=== PATIENT | male | born 1950 | race Caucasian/White ===

== ENCOUNTER → 2018-08-19 | Outpatient (CLI) | payer OTHER | END | disposition home or self-care (01) | LOC: RAH 10:13 | PROVIDERS: ATTEND Internal Medicine | DX: J44.9 Chronic obstructive pulmonary disease, unspecified (principal); I10 Essential (primary) hypertension; M47.815 Spondylosis without myelopathy or radiculopathy, thoracolumbar region; J84.10 Pulmonary fibrosis, unspecified; Q45.9 Congenital malformation of digestive system, unspecified; Z87.891 Personal history of nicotine dependence | CPT/HCPCS: 71046 ==

== ENCOUNTER → 2018-09-06 | Outpatient (CLI) | payer OTHER | END | disposition home or self-care (01) | LOC: RAH 08:40 | PROVIDERS: ATTEND Podiatrist | DX: M19.072 Primary osteoarthritis, left ankle and foot (principal); M25.775 Osteophyte, left foot; B35.1 Tinea unguium | CPT/HCPCS: 73630 ==

== ENCOUNTER → 2018-10-08 | Outpatient (CLI) | payer OTHER | END | disposition home or self-care (01) | LOC: RAH 16:12 | PROVIDERS: ATTEND Internal Medicine | DX: M48.56XA Collapsed vertebra, not elsewhere classified, lumbar region, initial encounter for fracture (principal); M47.816 Spondylosis without myelopathy or radiculopathy, lumbar region; M47.898 Other spondylosis, sacral and sacrococcygeal region; I87.8 Other specified disorders of veins | CPT/HCPCS: 72100; 72170; 72200 ==

== ENCOUNTER → 2023-01-23 | Outpatient (CLI) | payer OTHER | END | disposition home or self-care (01) | LOC: RAH 09:19 | PROVIDERS: ATTEND Internal Medicine Gastroenterology | DX: K44.9 Diaphragmatic hernia without obstruction or gangrene (principal) | CPT/HCPCS: 74240 ==

== ENCOUNTER → 2023-03-17 | Outpatient (CLI) | payer OTHER ==
[~2023-03-17] MED LIST: IOHEXOL 350 MG/ML 100ML INFUS..BTL IV ONE; METOPROLOL TARTRATE 1 MG/ML 5ML VIAL IV ONE
== END | disposition home or self-care (01) ==
LOC: RAH 08:06
PROVIDERS: ATTEND Internal Medicine Cardiovascular Disease
DX: R94.39 Abnormal result of other cardiovascular function study (principal); R06.00 Dyspnea, unspecified; R94.31 Abnormal electrocardiogram [ECG] [EKG]; I10 Essential (primary) hypertension; K44.9 Diaphragmatic hernia without obstruction or gangrene
CPT/HCPCS: 75574; J3490; Q9967 ×2

== ENCOUNTER 2023-04-16 08:16 | Observation (INO) | payer OTHER ==
[2023-04-13 16:00] LABS: BASOPHILS # (AUTO) 0.06 K/uL (0.00-0.20); BASOPHILS % (AUTO) 1.3 % (0.0-5.0); EOSINOPHILS # (AUTO) 0.09 K/uL (0.00-0.70); EOSINOPHILS % (AUTO) 1.9 % (0.0-8.0); HEMATOCRIT 36.5 % (42-54); LYMPHOCYTES # (AUTO) 1.9 K/uL (1.0-4.8); LYMPHOCYTES % (AUTO) 39.5 % (21.0-51.0); MEAN CORPUSCULAR HEMOGLOBIN 19.3 pg (27.0-33.0); MEAN CORPUSCULAR HGB CONC 27.9 g/dL (32.0-36.0); MONOCYTES # (AUTO) 0.6 K/uL (0.1-1.0); MONOCYTES % (AUTO) 12.7 % (3.0-13.0); NEUTROPHILS # (AUTO) 2.1 K/uL (1.8-7.7); NEUTROPHILS % (AUTO) 44.6 % (40.0-77.0); PLATELET COUNT (AUTO) 280 K/uL (130-400); RED BLOOD CELL COUNT(AUTO) 5.29 MIL/uL (4.50-6.20); RED CELL DISTRIBUTION WIDTH 21.4 % (11.0-15.5); WHITE BLOOD COUNT (AUTO) 4.7 K/uL (4.8-10.8)
[2023-04-13 16:06] LABS: CREATININE 1.1 mg/dL (0.5-1.5)
[2023-04-13 16:20] VITALS: BP 146/87; PULSE 71; RESP 18
[2023-04-16] VITALS (32 sets, daily range): BP systolic 113–170; BP diastolic 68–101; PULSE 66–102; RESP 12–19
[~2023-04-16] VITALS: Ht 185.4 cm; Wt 93.7 kg
[~2023-04-16 08:16] MED LIST changes: +ASCO500C18 PO; +CHOL100020 PO; +DOXA1TAB66 PO; +FAMO-136 PO; +FERR-82 PO; -IOHEXOL 350 MG/ML 100ML INFUS..BTL IV ONE; +METO25TA6 PO; -METOPROLOL TARTRATE 1 MG/ML 5ML VIAL IV ONE; +SUCR1TAB28 PO
[2023-04-16] MEDS ORDERED: LACTATED RINGERS 1000ML 1,000 ML IV ONE (08:50)
[2023-04-16] MEDS ORDERED: CEFAZOLIN SODIUM 2 GM VIAL ONE (08:50)
[2023-04-16] MEDS ORDERED: RENAL VITAMIN PO (09:13)
[2023-04-16] MEDS ORDERED: ACETAMINOPHEN 1,000 MG/100 ML VIAL IV ONE (13:01)
[2023-04-16] MEDS ORDERED: ROCURONIUM BROMIDE 10MG/1ML 5ML VL ONE ×2 (13:04→13:45)
[2023-04-16] MEDS ORDERED: PROPOFOL 10 MG/ML 20ML VIAL IV ONE (13:04)
[2023-04-16] MEDS ORDERED: LIDOCAINE PF 100MG/5ML (2%) SYRINGE 5ML ONE (13:04)
[2023-04-16] MEDS ORDERED: FENTANYL CITRATE PF 50 MCG/1 ML 5ML AMP IV ONE (13:04)
[2023-04-16] MEDS ORDERED: CEFAZOLIN SODIUM 2 GM VIAL IVPB ONE (13:25)
[2023-04-16] MEDS ORDERED: ONDANSETRON 4MG INJ ONE (13:27)
[2023-04-16] MEDS ORDERED: DEXAMETHASONE SOD PHOSPHATE 10MG/ML 1ML VIAL ONE (13:27)
[2023-04-16] MEDS ORDERED: BUPIVACAINE/PF 0.5% 30ML VIAL INJ ONE (13:30)
[2023-04-16] MEDS ORDERED: BUPIVACAINE/PF 0.5% 30ML VIAL ONE (13:30)
[2023-04-16] MEDS ORDERED: GLYCOPYRROLATE 0.2 MG/ML 5 ML VIAL ONE (13:37)
[2023-04-16] MEDS ORDERED: NEOSTIGMINE METHYLSULFATE 1MG/ML IV ONE (13:37)
[2023-04-16] MEDS ORDERED: ONDANSETRON 4MG INJ IVP PRN (16:30)
[2023-04-16] MEDS ORDERED: PROCHLORPERAZINE 10MG/2ML INJ IV PRN (16:30)
[2023-04-16] MEDS: LACTATED RINGERS 1000ML 1,000 ML IV SCH ×2 (16:30→19:51)
[2023-04-16] MEDS ORDERED: ENOXAPARIN SODIUM 30 MG/0.3 ML SQ SCH (16:30)
[2023-04-16] MEDS ORDERED: HYDROCODONE/ACETAMINOPHEN 7.5/325 MG 15 ML UDCUP PO PRN (16:30)
[2023-04-16] MEDS ORDERED: HYDROMORPHONE 1 MG INJ IVP PRN (16:30)
[2023-04-16] MEDS ORDERED: IPRATROPIUM/ALBUTEROL SULFATE 3 ML SOLUTION IH ONE ×2 (17:53→18:00)
[2023-04-16] MEDS: ENOXAPARIN SODIUM 30 MG/0.3 ML SQ SCH (19:51)
[2023-04-16] MEDS: HYDROMORPHONE 0.5 MG SYG (0.5MG/0.5ML) IVP PRN (20:44)
[2023-04-17 00:15] VITALS: BP 145/79; PULSE 79; RESP 16
[2023-04-17] MEDS: HYDROMORPHONE 0.5 MG SYG (0.5MG/0.5ML) IVP PRN (00:28)
[2023-04-17 04:00] VITALS: BP 122/86; PULSE 94; RESP 16
[2023-04-17] MEDS: LACTATED RINGERS 1000ML 1,000 ML IV SCH ×2 (05:35→16:30)
[2023-04-17] MEDS: KETOROLAC 30MG VIAL (30MG/ML) IV PRN ×2 (07:55→13:44)
[2023-04-17 07:57] VITALS: BP 142/82; PULSE 85; RESP 16
[2023-04-17] MEDS ORDERED: PANTOPRAZOLE 40 MG/VIAL IVP SCH (09:00)
[2023-04-17] MEDS ORDERED: DIATR MEGLU/DIATRIZOATE SODIUM 30 ML BOTTLE ONE (11:25)
[2023-04-17] MEDS: ENOXAPARIN SODIUM 30 MG/0.3 ML SQ SCH (13:31)
== END 2023-04-17 17:40 | disposition home or self-care (01) ==
LOC: DAH 08:16 → DAHIP 08:17 → DAH 08:17 → INTOOBSV 08:17 → 4BH 18:30
PROVIDERS: ADMIT Surgery; ATTEND Surgery
DX: K44.0 Diaphragmatic hernia with obstruction, without gangrene (principal); I10 Essential (primary) hypertension; K21.9 Gastro-esophageal reflux disease without esophagitis; N40.0 Benign prostatic hyperplasia without lower urinary tract symptoms; Z79.899 Other long term (current) drug therapy
CPT/HCPCS: 43282; 43999; S2900; 36415; 43235; 64447; 74240; 80048; 85025; 86850; 86900; 86901; 93005; 94640; 96372; 96374; 96375; 96376; C9113; G0378; J1100; J1170; J1650; J1885; J2001; J2405; J2704; J2710; J3010; J3490; J7030; J7120; Q9963; A4215; A4221; A4222; A4223; A4600; A4663; A4930; A6260; C1781; G0168; J0665; J0690

== ENCOUNTER 2025-03-14 11:23 | Emergency (ER) | payer OTHER ==
[~2025-03-14] VITALS: Ht 185.4 cm; Wt 90.7 kg
--- NOTE | 2025-03-14 11:52 | ERN ---
ED Note History of Present Illness Stated Complaint: FALL Chief Complaint: Mechanical Fall Time Seen by MD: 11:47 Time Seen by Midlevel: 11:48 Dictation: PATIENT IS A 75-YEAR-OLD MALE COMING IN WITH A COMPLAINTS OF A TRIP FALL WHILE WALKING 1 HOUR PRIOR TO ARRIVAL. HE STATES HE FELL FORWARD AND DID A FACE PLANT ON-CALL. HE SAID HE HAD NO LOC NO NAUSEA VOMITING HE DOES NOT KNOW WHY HE FELL BUT HE SAID HE TRIPPED. NO MIDLINE SPINE PAIN NEUROVASCULAR CMS INTACT TO ALL EXTREMITIES. MULTIPLE ABRASIONS TO NOSE FACE CHEEKS. PARTIAL AVULSION TO HIS RIGHT UPPER INCISOR TOOTH. NO MANDIBULAR PAIN WITH RANGE OF MOTION. LAST TETANUS SHOT WAS GREATER THAN FIVE YEARS AGO. PATIENT IS NOT ON BLOOD THINNERS AND THERE WAS NO TRAUMA ALERT CRITERIA. Allergies: Coded Allergies: No Known Drug Allergies (Unverified Allergy, Unknown, 04/13/23) Home Meds Reported Medications [Renal Vitamin] No Conflict Check, 1 TAB PO DAILY 04/16/23 Cholecalciferol (Vitamin D3) (Vitamin D3) 25 Mcg (1000 Unit) Tablet, 25 MCG PO DAILY, TAB 04/14/23 Sucralfate (Carafate) 1 Gram Tablet, 1 GM PO TIDAC, TAB 04/14/23 Famotidine (Pepcid) 20 Mg Tablet, 20 MG PO HS, TAB 04/14/23 Ferrous Sulfate (Iron) 325 Mg (65 Mg Iron) Tablet, 325 MG PO QWEEK, TAB 04/14/23 Ascorbic Acid (Vitamin C) 500 Mg Capsule, 500 MG PO DAILY, CAP 04/14/23 Doxazosin Mesylate (Cardura) 1 Mg Tablet, 1 MG PO HS, TAB 04/14/23 Metoprolol Tartrate (Metoprolol Tartrate) 25 Mg Tablet, 25 MG PO BID, TAB 04/14/23 Past Medical History Past Medical History: Hypertension, Other Additional Past Medical Hx: VERTIGO Surgical History: Other Surgical History Other: HERNIA SX RN Note Reviewed/Agreed w/PFSH: Yes Review of System Dictation CONSTITUTIONAL: NEGATIVE EXCEPT FOR HPI HEAD/FACE: NEGATIVE EXCEPT FOR HPI FACIAL PAIN HEADACHE AND TOOTH PAIN EENT: NEGATIVE EXCEPT FOR HPI RESPIRATORY: NEGATIVE EXCEPT FOR HPI GASTROINTESTINAL/ABDOMINAL: NEGATIVE EXCEPT FOR HPI GENITOURINARY: NEGATIVE EXCEPT FOR HPI MUSCULOSKELETAL: NEGATIVE EXCEPT FOR HPI INTEGUMENTARY: NEGATIVE EXCEPT FOR HPI NEUROLOGICAL/PSYCH: NEGATIVE EXCEPT FOR HPI HEMATOLOGIC/LYMPHATIC: NEGATIVE EXCEPT FOR HPI ALL SYSTEMS NEGATIVE, EXCEPT NOTED ABOVE. 13 POINT REVIEW OF SYSTEMS ASSESSED AND ALL NEGATIVE EXCEPT FOR ABOVE. Initial Vital Sign VS Vital Signs Date Time Temp Pulse Resp B/P (MAP) Pulse Ox O2 Delivery O2 Flow Rate FiO2 03/14/25 11:31 98.2 97 18 166/92 99 Physical Exam Dictation VITAL SIGNS REVIEWED GENERAL APPEARANCE: ALERT, ORIENTED X 3, MILD ACUTE DISTRESS, WELL DEVELOPED, NOURISHED. HEAD AND FACE: ABRASIONS TO CHIN NOSE CHEEKS. NO JESUS OR RACCOON SIGN EYES: PERRL, PINK CONJUNCTIVAS, EYELID NO TRAUMA, ANTERIOR CHAMBER WITH ARCUS SENILIS. EARS: PINNAS INTACT AND NO SIGNS OF TRAUMA OR ERYTHEMA EAR CANALS CLEAR AND NO DISCHARGE TM NO ERYTHEMA NO HEMOTYMPANUM NOSE: NO DISCHARGE, NO BLEEDING. OROPHARYNX: MOUTH NORMAL, TONGUE PINK, PHARYNX CLEAR,NO ERYTHEMA, TONSILS NO EXUDATES, NO ABSCESSES NOTED, MUCOUS MEMBRANE MOIST NECK: SUPPLE, NON-TENDER, NO THYROMEGALY, NO MASSES, NO JVD, NO BRUITS BREAST:DEFERRED CHEST:NO TENDERNESS, NO CREPITUS, NO PARADOXICAL MOVEMENT, NO RETRACTIONS LUNGS:CLEAR, WELL-VENTILATED, SYMMETRIC, NO RALES, NO WHEEZING, NO RHONCHI, NO STRIDOR, GOOD BREATH SOUNDS BILATERALLY HEART: REGULAR RATE, REGULAR RHYTHM, NO MURMUR, NO GALLOPS VASCULAR: NO PERIPHERAL EDEMA, ABDOMEN: SOFT, POSITIVE BOWEL SOUNDS, NONDISTENDED, NO GUARDING, NONTENDER, NO REBOUND, NO MASSES NO HEPATOMEGALY, NO SPLENOMEGALY, NO GARDNER'S SIGN, NO HERNIAS. RECTAL: DEFERRED GENITAL: DEFERRED NEUROLOGICAL: NORMAL SPEECH, MOTOR FUNCTION INTACT, SENSORY FUNCTION INTACT MUSCULOSKELETAL: NECK NONTENDER, FULL RANGE OF MOTION, BACK NONTENDER, FULL RANGE OF MOTION, NO MIDLINE SPINE PAIN NO STEP-OFFS AND MOVES ALL EXTREMITIES 5/5 BILATERALLY. EXTREMITIES: ABRASIONS TO BILATERAL ANTERIOR KNEES HOWEVER FULL RANGE OF MOTION AND PATIENT'S SAID HE DOES NOT IN X-RAY SKIN: COLOR PINK, DRY, NO TURGOR, NO RASH, NO LACERATIONS, NO ABRASIONS, NO CONTUSIONS. LYMPHATIC: DEFERRED Results (Laboratory/Radiology) Laboratory/Radiology XAM: CT Head Without IV contrast. CLINICAL HISTORY: Facial trauma and head trauma after fall with questionable loss of consciousness. TECHNIQUE: Axial computed tomography images of the head/brain without intravenous contrast. COMPARISON: None provided. FINDINGS: BRAIN: No evidence of acute hemorrhage, mass lesion, or acute large territorial infarct. No midline shift or extra-axial collection. Mild diffuse cerebral volume loss with small hypodense foci in the bilateral fronto-parietal white matter, compatible with chronic small vessel ischemic changes. VENTRICLES: Normal in size and configuration. No hydrocephalus. ORBITS: The orbits are unremarkable. SINUSES AND MASTOIDS: Left maxillary sinus mucous retention cyst. Nasal septum is deviated to the right with an impinging septal spur. Mastoid air cells are clear. BONES: No calvarial fracture. SOFT TISSUES: No scalp hematoma or other acute soft tissue abnormality. IMPRESSION: * No CT evidence of acute traumatic intracranial abnormality, including no hemorrhage, mass effect, fracture, or extra-axial collection. * Mild diffuse cerebral volume loss with chronic small vessel ischemic changes in the bilateral fronto-parietal white matter, with incidental left maxillary sinus mucous retention cyst and rightward deviated nasal septum with impinging septal spur. /[facility] Reviewed?: Yes ED Course ED Course Orders Procedure Category Date Status Time Ct Head/Brain W/O CT 03/14/25 Resulted Contrast 11:47 Ct Maxillofacial W/O CT 03/14/25 Resulted Contrast 11:47 Acetaminophen 500mg PHA 03/14/25 Complete Tab (Tylenol 500mg T 12:00 Neomy PHA 03/14/25 Complete Sulf/Bacitra/Polymyxin 12:00 Apply Ice Pack To: CPOE 03/14/25 Transmitted (Er) 11:47 Tetanus,Diphtheria PHA 03/14/25 Complete Tox [Adult] (Diphther 12:00 Current Medications Medications (Trade) Dose Ordered Sig/Anthony Route PRN Reason Start Time Stop Time Status Last Admin Dose Admin Acetaminophen (TYLenol 500MG TAB) 1,000 mg ONCE ONCE PO 03/14/25 12:00 03/14/25 12:01 DC 03/14/25 12:17 Neomycin/ Polymyxin/ Bacitracin (Triple Antibiotic Ointment) 1 appl ONCE ONCE TP 03/14/25 12:00 03/14/25 12:01 DC 03/14/25 12:17 Tetanus/ Diphtheria Toxoids Adsorbed (DiphthERIA-teTANUS TOXOID [ADULT]/ DECAVAC) 0.5 ml ONCE ONCE IM 03/14/25 12:00 03/14/25 12:01 DC 03/14/25 12:17 Vital Signs Date Time Temp Pulse Resp B/P (MAP) Pulse Ox O2 Delivery O2 Flow Rate FiO2 03/14/25 11:31 98.2 97 18 166/92 99 1250/PATIENT REMAINS ALERT AND ORIENTED X4 SPEECH IS CLEAR. HE IS AWARE OF ALL OF HIS CLINICAL FINDINGS WITH CAT SCANS IS AT THE BEDSIDE WITH HIM AND SHE WAS GIVEN CLOSED-HEAD INJURY INSTRUCTIONS AND AGREES TO RETURN IF ANY CHANGES. Medical Decision Making MDM MEDICAL DECISION-MAKING BASED ON HPI AND RULING OUT TRAUMA ALERT. CTS FACE AND HEAD NEGATIVE SINUS CYST NOTED BUT HE SAID THIS IS CHRONIC DISCHARGED HOME NEUROLOGICALLY INTACT AND CLOSED HEAD INJURY INSTRUCTIONS TO AND THE PATIENT DX & DISP Disposition: Discharge Departure Impression: Primary Impression: Facial contusion Additional Impressions: Facial abrasion, Closed head injury, Concussion, Fall, Tooth loose Condition: Stable Additional Instructions: FOLLOW-UP WITH PRIMARY CARE PROVIDER IN 1 TO 2 DAYS. TAKE MEDICATIONS DIRECTED HERE IN THE EMERGENCY ROOM. OKAY TO CONTINUE HOME MEDICATIONS UNLESS OTHERWISE DISCUSSED DURING YOUR VISIT IN THE EMERGENCY ROOM TODAY. RETURN TO YOUR NEAREST EMERGENCY ROOM IF SYMPTOMS WORSEN OR IF THERE IS NO IMPROVEMENT. C ALL 911 IF YOU NEED IMMEDIATE ASSISTANCE. TAKE TYLENOL OR MOTRIN [id number] NEEDED AND IF NO CONTRAINDICATIONS ARE PRESENT. INCREASE ORAL HYDRATION. A WOUND CULTURE OR URINE CULTURE WAS ORDERED HERE IN THE EMERGENCY ROOM DEPARTMENT PLEASE FOLLOW-UP WITH PRIMARY CARE PROVIDER AND ADVISE THEM TO GET REPEAT PORTS FROM OUR FACILITY. IF YOU HAD ANY SAPNA WRAP/SPLINTS THAT WERE APPLIED HERE, PLEASE DO NOT REMOVE THEM UNTIL YOU SEE YOUR PRIMARY CARE OR SPECIALTY. TRIPLE ANTIBIOTIC OINTMENT/[id number] NEEDED FOR ABRASIONS 3 TIMES A DAY FOR FIVE DAYS. TAKE TYLENOL ONLY FOR PAIN UNTIL CLEARED BY YOUR DOCTOR. FOLLOW UP WITH THE YOUR DENTIST FOR YOUR LOOSE TOOTH RETURN TO THE EMERGENCY ROOM IF ANY CHANGES FROM HEAD INJURY WORKS SHEET Referrals: SWETA CAMERON MD (PCP) Time of Disposition: 12:57 I have reviewed the case, and I agree with, Diagnosis and Plan DILLON ULRICH FIRE PATROLLER Mar 14, 2025 11:52
[2025-03-14] MEDS: NEOMY SULF/BACITRA/POLYMYXIN B 1 EACH PACKET TP ONE (12:17)
--- NOTE | 2025-03-14 12:26 | HMCIMG ---
EXAM: CT Head Without IV contrast. CLINICAL HISTORY: Facial trauma and head trauma after fall with questionable loss of consciousness. TECHNIQUE: Axial computed tomography images of the head/brain without intravenous contrast. COMPARISON: None provided. FINDINGS: BRAIN: No evidence of acute hemorrhage, mass lesion, or acute large territorial infarct. No midline shift or extra-axial collection. Mild diffuse cerebral volume loss with small hypodense foci in the bilateral fronto-parietal white matter, compatible with chronic small vessel ischemic changes. VENTRICLES: Normal in size and configuration. No hydrocephalus. ORBITS: The orbits are unremarkable. SINUSES AND MASTOIDS: Left maxillary sinus mucous retention cyst. Nasal septum is deviated to the right with an impinging septal spur. Mastoid air cells are clear. BONES: No calvarial fracture. SOFT TISSUES: No scalp hematoma or other acute soft tissue abnormality. IMPRESSION: * No CT evidence of acute traumatic intracranial abnormality, including no hemorrhage, mass effect, fracture, or extra-axial collection. * Mild diffuse cerebral volume loss with chronic small vessel ischemic changes in the bilateral fronto-parietal white matter, with incidental left maxillary sinus mucous retention cyst and rightward deviated nasal septum with impinging septal spur. /[place]
--- NOTE | 2025-03-14 12:53 | HMCIMG ---
EXAM: CT Maxillofacial Without IV contrast. CLINICAL HISTORY: Facial trauma and head trauma after fall with questionable loss of consciousness. TECHNIQUE: Axial CT images of the face obtained without intravenous contrast with sagittal and coronal reformatted images. CONTRAST: None. COMPARISON: None provided. FINDINGS: FACIAL BONES/ORBITS: No acute facial bone fracture or aggressive osseous lesion. Mandible is intact. Bilateral temporomandibular joints show degenerative osteoarthritic change with flattening of the articular surfaces. Orbits are normal without retrobulbar hematoma or mass. Paranasal sinuses are clear except for a mucous retention cyst in the left maxillary sinus. Nasal septum is deviated to the right with hypertrophy of the inferior turbinates. SOFT TISSUES: No focal soft tissue swelling, radiopaque foreign body, or fluid collection. IMPRESSION: * No CT evidence of acute facial bone fracture or orbital injury. * Deviated nasal septum to the right with hypertrophied inferior turbinates, degenerative osteoarthritis of both temporomandibular joints, and an incidental left maxillary sinus mucous retention cyst. /[place]
[2025-03-14 13:18] VITALS: BP 164/85; PULSE 82; RESP 20; TEMP 97.8; O2SAT 98
== END 2025-03-14 13:19 | disposition home or self-care (01) ==
LOC: EDH 11:23
DX: S06.0X0A Concussion without loss of consciousness, initial encounter (principal); S00.81XA Abrasion of other part of head, initial encounter; I10 Essential (primary) hypertension; W01.0XXA Fall on same level from slipping, tripping and stumbling without subsequent striking against object, initial encounter; Y93.01 Activity, walking, marching and hiking; Y92.89 Other specified places as the place of occurrence of the external cause; Y99.8 Other external cause status
CPT/HCPCS: 70450; 70486; 90471; 90714; 99285